=== PATIENT | female | born 1945 | race Hispanic/Latino ===

== ENCOUNTER 2017-09-19 11:04 | Inpatient (IN) | payer OTHER ==
[2017-09-19 11:41] LABS: #Basophils 0.1 thou/uL (0.0-0.2); #Eosinphils 0.1 thou/uL (0.0-0.7); #Lymphocytes 2.1 thou/uL (1.20-3.40); #Monocytes 0.3 thou/uL (0.11-0.59); %Basophils 1.8 % (0.0-1.0); %Eosinophils 2.6 % (0.0-10.0); %Lymphocytes 44.9 % (21.0-51.0); %Monocytes 6.7 % (0.0-10.0); %Neutrophils 44.1 % (42.0-75.0); Hemoglobin 14.5 g/dL (12.0-16.0); Mean Corpuscular HGB CONC 33.2 g/dL (32.0-36.0); Mean Corpuscular Hemoglobin 31.2 pg (27.0-31.0); Mean Corpuscular Volume 93.8 fl (81.0-99.0); Mean Platelet Volume 7.3 fL (7.4-10.4); Platelet Count 305 thou/uL (130-400); RBC Distribution Width 12.7 % (11.5-14.5); Red Blood Cell (RBC) Count 4.64 mill/uL (4.20-5.40); White Blood Cell (WBC) Count 4.6 thou/uL (4.8-10.8)
[2017-09-19 12:07] LABS: CKMB 0.6 ng/mL (0-6.6)
[2017-09-19 13:09] LABS: Albumin 4.2 g/dL (3.4-4.8)
[2017-09-19 13:10] LABS: Chloride 106 mmol/L (98-107); Potassium 3.8 mmol/L (3.5-5.1); Sodium 139 mmol/L (136-145)
[2017-09-19 13:11] LABS: Calcium 10.2 mg/dL (7.8-10.44); Glucose 88 mg/dL (83-110)
[2017-09-19 13:12] LABS: Globulin 3.2 g/dL (2.4-3.5); Protein, Total 7.4 g/dL (6.0-8.3)
[2017-09-19 13:13] LABS: Anion Gap 12 mmol/L (10-20); Carbon Dioxide 25 mmol/L (23-31)
[2017-09-19 13:14] LABS: Alkaline Phosphatase 103 U/L (40-150)
[2017-09-19 13:15] LABS: Calc. Creatinine Clearance 0 mL/min (70-130); Estimated GFR-MDRD 65
[2017-09-19 13:16] LABS: AST (SGOT) 16 U/L (5-34); BUN (Urea Nitrogen) 21 mg/dL (9.8-20.1)
[2017-09-19 13:17] LABS: ALT (SGPT) 10 U/L (8-55); CK (CPK) 51 U/L (29-168)
[2017-09-19 13:21] LABS: Bilirubin Negative (Negative); Blood, Urine Negative (Negative); Clarity CLEAR (Clear); Glucose, Urine (Dipstick) Negative (Negative); Leukocyte Negative (Negative); Nitrite Negative (Negative); Protein, Urine (Dipstick) Negative (Neg-Trace); Specific Gravity, Urine 1.013 (1.002-1.036)
--- NOTE | 2017-09-19 14:18 | RAD ---
PORTABLE CHEST ONE VIEW: 09/19/2017 12:58 p.m. HISTORY: Weakness. Dizziness. FINDINGS: The heart size is normal. The aorta is tortuous. The lungs are well expanded without focal areas of consolidation, pneumothorax, or pleural effusions. IMPRESSION: No radiographic evidence of acute cardiopulmonary process. POS: [facility]
[2017-09-19 15:09] LABS: CKMB 0.6 ng/mL (0-6.6); Troponin I 0.039 ng/mL (< 0.028)
[2017-09-19] MEDS ORDERED: hydrALAZINE 20 MG/ML VIAL ONE (16:13)
[2017-09-19 18:11] LABS: Troponin I 0.038 ng/mL (< 0.028)
[2017-09-19] MEDS ORDERED: hydrALAZINE 20 MG/ML VIAL SLOW IVP PRN (18:18)
[2017-09-19] MEDS ORDERED: Mag-Al 1200 mg/1200 mg/30 ML UDCUP PO PRN (18:18)
[2017-09-19] MEDS ORDERED: Ondansetron ODT 4 MG TAB PO PRN (18:18)
[2017-09-19] MEDS ORDERED: Milk Of Magnesia 30 ML UDCUP PO PRN (18:18)
[2017-09-19] MEDS ORDERED: Ondansetron HCl/PF 4 MG/2 ML Vial IVP PRN (18:18)
[2017-09-19 18:23] VITALS: BMI 22.7
--- NOTE | 2017-09-19 19:06 | HP ---
PRIMARY CARE PHYSICIAN: Currently does not have a primary care physician. CHIEF COMPLAINT: Feeling dizzy and weak. HISTORY OF PRESENT ILLNESS: Ms. Fallon is a pleasant 71-year-old female. [facility]. She says that she began feeling bad about 2-3 days ago. She says that she noticed some burning with urination and increased urination. She had gone to the [facility] on and was given Bactrim DS then on the next day; Sunday, she went to class and she says she was w alking through the unit and began feeling weak and dizzy. She says she went to eat lunch and then fe lt shaky and was shaking a lot and the nurse gave her meclizine. She says she went to bed and then t his morning she was still feeling very weak and says that her left side felt a little bit numb. She also had some nausea, but no vomiting. She thought that the nausea might be related to a new medicat ion. She was prescribed for psoriasis. She says that she had been recently placed on Otezla and was having some difficulty with balance. The patient also says that she has been having some difficulty with swallowing. She says the food feels like it gets stuck in her throat. She said this happen to her before about 2 years ago and at that time she had what sounds like an esophageal dilatation and she says the symptoms started to return this past November and has gotten progressively worse. She was s een in the ER and her initial evaluation is essentially negative with the exception of a slightly wes vated troponin and also she had an EKG in which her heart rate was in the 40s. She has been on ateno lol, but she says that she did not take the atenolol today and she has been on the medication for the past 5 months. She took this to replace lisinopril, which caused a cough. REVIEW OF SYSTEMS: Constitutional: There have been no fevers, chills, no night sweats, no weight lo ss. HEENT: She denies any headache, no dizziness, no visual changes, no sore throat, no rhinorrhea, neck pain, no adenopathy. Pulmonary: No hemoptysis, no cough, no wheezing. Cardiovascular: She d enies any chest pain, no shortness of breath, no PND, no orthopnea. Gastrointestinal: As the histor y of present illness. She has been having some dysphagia to solids with food getting stuck in her th roat. She also admits to having some rectal bleeding about a month ago and some rectal pain. She ad mits to some hemorrhoids and says she was given Preparation H and it helped and she also had some sto ol for occult blood done, which she says reportedly was negative. Genitourinary: She has had recent dysuria in which she had been treated with Bactrim. Musculoskeletal: No muscle pains, weakness or joint pains. Neurologic: No focal weakness, numbness, no seizures. Psychiatric: No symptoms of an xiety or depression. Skin and Integument: No skin changes. No rash. PAST MEDICAL HISTORY: Significant for psoriasis, esophageal stricture and fibromyalgia. PAST SURGICAL HISTORY: She has had a hysterectomy and tonsillectomy. ALLERGIES: No known drug allergies, but LISINOPRIL causes a cough. SOCIAL HISTORY: She is , has 4 children, seven grandchildren. She is a nonsmoker, nondrinker . She wishes to be DNR. FAMILY HISTORY: Negative. CURRENT MEDICATIONS: Include Cymbalta, Lyrica, amlodipine and atenolol. PHYSICAL EXAMINATION: GENERAL: She is alert and oriented. She appears to be in no acute distress. VITAL SIGNS: The blood pressure was 179/76, heart rate 53, respiratory rate of 16, and she is afebri le. HEENT: Pupils are equal, round, and reactive. Extraocular muscles are intact. Her sclerae are anic teric. Throat, no erythema, no exudates. NECK: No adenopathy, no bruits. LUNGS: Clear to auscultation. There is no wheezing, no rales. CARDIOVASCULAR: She has a normal S1, S2. There was no S3 or S4. No murmurs, clicks or rubs. ABDOMEN: Soft, it is nontender, nondistended. Positive for bowel sounds. No rebound or guarding. EXTREMITIES: There is no edema. NEUROLOGIC: Neurologically, the exam is grossly nonfocal. SIGNIFICANT LABORATORY DATA: White blood cell count is 4.6, hemoglobin 14.5, hematocrit is 43.5, alek telet count is 305. Sodium 139, potassium 3.8, chloride is 106, CO2 is 25, BUN of 21, creatinine 0.8 6, glucose is 88. Urinalysis was essentially negative. ASSESSMENT AND PLAN: 1. This is a pleasant 71-year-old female that presents with some vague symptoms including some dysph agia as well as feeling weak and dizzy and mild nausea. She had an EKG that showed some bradycardia. It is unclear if her heart rate is causing her symptoms such as the weakness and dizziness. For th is reason, we will place her in observation, monitor her on telemetry, get an echocardiogram and cons ult Cardiology for possible symptomatic bradycardia. We will also hold atenolol and see if the trend continues off of beta blockers. 2. Dysphasia. We will consult the coating operator police surgeon and see if she is a candidate for esop hageal dilatation. 3. She appears to be volume depleted. She has a high BUN to creatinine ratio. This could be contri buting to her symptoms as well. Therefore, she will be placed on IV fluids and we can see if this he lps the following day with regards to her symptoms, i.e., after she has been hydrated and we will als o check some general labs such as thyroid functions and a sed rate.
[2017-09-19] MEDS: Sodium Chloride 0.9% 1,000 ML IV SCH (20:59)
[2017-09-19 21:08] LABS: Troponin I 0.035 ng/mL (< 0.028)
[2017-09-20 05:01] LABS: #Basophils 0.1 thou/uL (0.0-0.2); #Eosinphils 0.2 thou/uL (0.0-0.7); #Lymphocytes 2.3 thou/uL (1.20-3.40); #Monocytes 0.5 thou/uL (0.11-0.59); #Neutrophils 2.4 thou/uL (1.40-6.50); %Basophils 1.8 % (0.0-1.0); %Eosinophils 3.6 % (0.0-10.0); %Lymphocytes 42.1 % (21.0-51.0); %Monocytes 8.3 % (0.0-10.0); %Neutrophils 44.1 % (42.0-75.0); Hemoglobin 13.2 g/dL (12.0-16.0); Mean Corpuscular HGB CONC 32.6 g/dL (32.0-36.0); Mean Corpuscular Hemoglobin 30.8 pg (27.0-31.0); Mean Corpuscular Volume 94.3 fl (81.0-99.0); Mean Platelet Volume 6.6 fL (7.4-10.4); Platelet Count 298 thou/uL (130-400); RBC Distribution Width 12.4 % (11.5-14.5); Red Blood Cell (RBC) Count 4.29 mill/uL (4.20-5.40); White Blood Cell (WBC) Count 5.5 thou/uL (4.8-10.8)
[2017-09-20 05:12] LABS: Anion Gap 10 mmol/L (10-20); BUN (Urea Nitrogen) 17 mg/dL (9.8-20.1); Calc. Creatinine Clearance 52 mL/min (70-130); Carbon Dioxide 27 mmol/L (23-31); Cardiac Risk 4.5 (Less than 4.5); Chloride 108 mmol/L (98-107); Cholesterol 285 mg/dl (< 200 Desired); Estimated GFR-MDRD 69; Glucose 94 mg/dL (83-110); HDL Cholesterol 64 mg/dL (>60 Neg Risk); LDL Cholesterol, Calculated 191 mg/dL; Potassium 3.6 mmol/L (3.5-5.1); Sodium 141 mmol/L (136-145); Triglycerides 151 mg/dL (Less than 150)
[2017-09-20] MEDS: Enoxaparin Sodium 30 MG/0.3 ML SYRINGE SC SCH (08:55)
[2017-09-20] MEDS: Aspirin 325 MG TAB PO SCH (08:55)
[2017-09-20] MEDS: Sodium Chloride 0.9% 1,000 ML IV SCH (08:56)
[2017-09-20] MEDS ORDERED: Regadenoson 0.4 MG/5 ML SYRINGE ONE (09:56)
[2017-09-20] MEDS: Acetaminophen 325 MG TAB PO PRN ×2 (16:05→22:41)
--- NOTE | 2017-09-20 16:23 | NM ---
NUCLEAR MEDICINE CARDIAC MYOCARDIAL PERFUSION SPECT EJECTION FRACTION STUDY WALL MOTION CINE: Date: 09/20/17 HISTORY: 71-year-old female with elevated troponin, and history of hypertension and hypercholesterolemia. TECHNIQUE: Number of days: 1 Rest study: Tc99m sestamibi (Cardiolite) dose: 9.5 mCi Pharmacologic stress: Lexiscan dose: 0.4 mg Stress study: Tc99m sestamibi (Cardiolite) dose: 30.8 mCi FINDINGS: CARDIAC (MYOCARDIAL PERFUSION) SPECT Distribution of sestamibi is homogeneous throughout the left ventricle, with no fixed or reversible m yocardial perfusion defects. EJECTION FRACTION STUDY EF = 83% WALL MOTION CINE The left ventricular wall motion is normal. There is normal systolic wall thickening. IMPRESSION: Normal. jn[] POS: [facility]
--- NOTE | 2017-09-20 16:55 | PDOC.PN ---
- Subjective Encounter Start Date: 09/20/17 Encounter Start Time: 16:54 Ms. Fallon was seen today in follow-up. She says she is feeling better. She denies having any new complaints. - Objective Resuscitation Status: Resuscitation Status DNR:Do Not Resuscitate MAR Reviewed: Yes Vital Signs & Weight: Vital Signs (12 hours) Temp Pulse Pulse Resp BP BP BP 09/20/17 15:58 98.1 F 90 15 168/80 H 09/20/17 11:44 98.3 F 86 16 09/20/17 10:00 87 185/84 H 09/20/17 09:56 09/20/17 09:05 189/88 H 09/20/17 09:00 189/88 H 09/20/17 08:00 97.9 F 61 16 BP Pulse Ox 09/20/17 15:58 95 09/20/17 11:44 154/82 H 96 09/20/17 10:00 09/20/17 09:56 173/74 H 09/20/17 09:05 09/20/17 09:00 09/20/17 08:00 186/81 H 93 L Weight Weight 116 lb 4.8 oz I&O: 09/19/17 09/20/17 09/21/17 06:59 06:59 06:59 Intake Total 830 Output Total 1000 1400 Balance -170 -1400 Result Diagrams: 09/20/17 04:53 09/20/17 04:53 Phys Exam - Physical Examination HEENT: PERRLA Respiratory: no wheezing, no rales, no rhonchi, clear to auscultation bilateral Cardiovascular: RRR, no significant murmur, no rub Gastrointestinal: soft, non-tender, positive bowel sounds Musculoskeletal: no edema Dx/Plan (1) Bradycardia Code(s): R00.1 - BRADYCARDIA, UNSPECIFIED Status: Acute (2) Generalized weakness Code(s): R53.1 - WEAKNESS Status: Acute (3) Hypertension Code(s): I10 - ESSENTIAL (PRIMARY) HYPERTENSION Status: Acute (4) Psoriasis Code(s): L40.9 - PSORIASIS, UNSPECIFIED Status: Acute - Plan * Bradycardia- her heart rate has been normal after withdrawing Atenolol * Stress test and Echo were normal * Await further recommendations from Cardiology * Dysphagia- Plan for GI evaluation * HTN- will re-start Amlodipine * Generalized weakness- possibly due to volume depletion, as she is improved after IV fluids, and her BUN to creatinine ratio was elevated yesterday.
--- NOTE | 2017-09-20 17:53 | CON ---
DATE OF CONSULTATION: 09/20/2017 INDICATION FOR CONSULTATION: A 71-year-old female with slight elevation in the cardiac enzymes, whic h are still obviously indeterminate. HISTORY OF PRESENT ILLNESS: This is a 71-year-old female, who is incarcerated and has not been feeli ng well for the last couple days, complaining of dizziness, and weakness. She had had history of hyp ertension in the past and some occasional chest discomfort. She has been in the past using nitroglyc tsering patches obviously, but has none there for quite some time, but she has been treated with atenolo l. She presented to the emergency room yesterday and was noted to have a heart rate in the 40s, whic h is sinus bradycardia. She was not significantly symptomatic with this and since being in the [facility], she has not been on the atenolol and the heart rate has increased and actually on occasion has b een up to almost 130 when she gets up and goes to the bathroom. She denies any chest pain at this ti me. She has also been complaining of some dysphagia and has a history of a previous esophageal stric ture in the past and underwent dilatation. She had no other significant complaints. She had no lowe r extremity edema and shortness of breath. She give some history of a murmur in the past. She had a n echocardiogram performed earlier today, which shows a normal ejection fraction with mild mitral and tricuspid and pulmonary valve regurgitation. PAST MEDICAL HISTORY: Significant for esophageal stricture. She has history of psoriasis, fibromyal roscoe, hypertension, hypercholesterolemia. She had a hysterectomy, tonsillectomy. SOCIAL HISTORY: She is a . She has no history of alcohol or tobacco abuse. FAMILY HISTORY: Noncontributory. ALLERGIES: She has intolerance to BALAJI inhibitors. Otherwise, no significant medical allergies, we a campuzano of. REVIEW OF SYSTEMS: Twelve-point review of systems unremarkable except what was noted the history of present illness except for some occasional dysuria, but she had urinalysis, which was unremarkable. PHYSICAL EXAMINATION: GENERAL: Reveals a short statured female. VITAL SIGNS: Blood pressure is 173/74. She is afebrile. Heart rate initially was 60 to 70s, at thi s time shows a sinus rhythm, respiratory rate 16, and O2 saturations are 93%. HEENT: Shows the head to be normocephalic and atraumatic. Carotid pulses are present. There were n o bruits. There is no JVD. The thyroid is not enlarged. Oral mucosa was pink and moist. CHEST: Clear to auscultation without rales, rhonchi, or wheezing. CARDIOVASCULAR: Exam reveals a regular rate and rhythm with normal S1 and S2. There are no signific ant murmurs, heaves, thrills, bruits, or rubs. ABDOMEN: Soft and nontender with positive bowel sounds. No organomegaly or masses are noted. Femor al pulses are present. EXTREMITIES: Showed no clubbing, cyanosis, or edema. Pedal pulses are present. NEUROLOGIC: She appears to be fully intact. She has normal strength and tone. SKIN: Warm and dry. LABORATORY DATA: Shows a troponin I of 0.03, which has remained at 0.030 up to 0.039 and down to 0.0 35, all of which have been indeterminate. Her CPK-MB is unremarkable. Her LDL level was 191. Trigl yceride level was 151. There is no evidence of anemia. Renal function is normal with a creatinine o f 0.82, potassium is borderline at 3.6. At this time, her EKG did not show any ischemia. It could b e that decrease in the heart rate was either vasovagal episode or either due to possibly being on the beta blockers. We will continue to follow this, at this time her heart rate is stable. If she has tachycardia, we may resume a small dose of beta blockers, which she said previously she had been what she thought was on 25 mg of the beta fredi and according to the records, this is what was indicate d. She is also taking Otezla as well as Norvasc 10 mg a day. Other medicines have included Cymbalta and Lyrica. She has also been given p.r.n., meclizine. She had been given some antibiotics, for wh ich it was thought to be possible urinary tract infection. She was given sulfa drugs in the form of Septra and this actually may have been the etiology of her dizziness, weakness, and nausea due to the antibiotics. She was treated with Bactrim. IMPRESSION: 1. A middle-aged female with risk factors of coronary artery disease, which include hypertension, hy percholesterolemia, some history of chest pain in the past. No history of tobacco abuse, some remote history also of chest pain and nitroglycerin use. At this time, I would suggest that since her echo was unremarkable and EKGs also show no evidence of ischemia. She undergo some type of stress test t o rule out evidence for underlying ischemia. 2. Esophageal dysphagia, which may be associated with esophageal dilatation. She will be seen by [facility] supervisor [employer]. She may need to undergo again esophageal dilatation. 3. Hypertension. We will need to readjust her medications in order to maintain the blood pressure. 4. Hypercholesterolemia. I would suggest she start on some type of statin medications. 5. History of dizziness. Again, this may have been due to the bradycardia or may be due to the medi cation that she was given for the possible urinary tract infection in the form of Bactrim. 6. Abnormal cardiac enzymes. She is obviously indeterminate and may be just due to the hypertension that she has developed since being admitted. Further recommendations will depend on the results of the stress test. If this is unremarkable, then no further cardiac workup would be indicated at this time. If the stress test shows significant abnormalities then I would suggest she undergo possible c ardiac catheterization.
[2017-09-20] MEDS ORDERED: Apremilast [Otezla] 30 MG PO SCH (21:00)
--- NOTE | 2017-09-20 21:59 | CON ---
DATE OF CONSULTATION: 09/20/2017 REASON FOR CONSULTATION: Dysphagia. HISTORY OF PRESENT ILLNESS: Ms. Reagan is a 71-year-old who came to emergency room for dizziness an d weakness. She was found to have her pulses in the 60s. Her examination was benign. She ruled out for VA. She was placed in observation status as in the side, she was noted to have a history of dys phagia which has been worsening over the past several months. This is mainly for solid foods. She h as had no bolus obstruction. She has had no weight loss or vomiting. She reports she has had an EGD several years ago at an outside facility at [place], [place], for the same and had reflux. I am asked t o see her in regards to this. PAST MEDICAL HISTORY: Psoriasis. The patient notes she had depression when she was placed in an inc arceration because of something her friend had done and with that developed significant fibromyalgia, but she is getting over both of those. Prior history of gastroesophageal reflux disease. PAST SURGICAL HISTORY: Hysterectomy, tonsillectomy, and previous esophageal dilatation. MEDICATIONS: Cymbalta, Lyrica, amlodipine, atenolol. She states she takes omeprazole daily. ALLERGIES: LISINOPRIL causes a cough. SOCIAL HISTORY: Nonsmoker, nondrinker. She is incarcerated. PRESENT MEDICATIONS: Here, Tylenol, Maalox, Lovenox, Apresoline, Milk of Magnesia, Zofran, Protonix, normal saline 75. PHYSICAL EXAMINATION: GENERAL: She is resting comfortably in bed. VITAL SIGNS: Temperature is 98, pulse 86, blood pressure 185/84. GENERAL: She is a well-nourished, well-developed. NECK: Supple without adenopathy. HEENT: Oropharynx without lesions. LUNGS: Clear. HEART: Regular rate and rhythm without clicks or murmurs. EXTREMITIES: No clubbing, cyanosis or edema. LABORATORY STUDIES: CBC is normal. Comprehensive metabolic profile normal. Troponins 0.03-0.0389. Chest x-ray negative. ASSESSMENT: 1. Patient is admitted for weakness and bradycardia and she is going for a cardiac stress test which will be 2 days apparently. 2. Dysphagia, longstanding, worsening recently. RECOMMENDATIONS: Elective EGD once patient has been cleared from a cardiac standpoint. This could b e as an in or outpatient. I will be more happy to reevaluate the patient once cardiac evaluation is complete.
[2017-09-21] MEDS: Sodium Chloride 0.9% 1,000 ML IV SCH ×3 (03:19→19:45)
[2017-09-21] MEDS ORDERED: hydrALAZINE 20 MG/ML VIAL SLOW IVP PRN (04:25)
[2017-09-21] MEDS: Enoxaparin Sodium 30 MG/0.3 ML SYRINGE SC SCH (08:04)
--- NOTE | 2017-09-21 08:10 | PDOC.CTH ---
<Luciana Roberts - Last Filed: 09/21/17 08:11> Cardiology Progress Note - Subjective The pt seen and examined. No overnight events. No cardiac complaints. She still complains of discomfort in upper ABD, but denied any CP or discomfort in her chest, dizziness, SOB or other cardiac complaints at this moment. - Objective Vital Signs Temp Pulse Resp BP BP Pulse Ox 09/21/17 07:23 97.8 F 63 16 09/21/17 07:16 98.0 F 65 16 174/79 H 96 09/21/17 03:20 97.8 F 63 16 171/72 H 94 L Weight 116 lb 4.8 oz 09/20/17 09/21/17 09/22/17 06:59 06:59 06:59 Intake Total 830 1496 Output Total 1000 1950 Balance -170 -454 - Physical Examination General/Neuro: alert & oriented x3 Neck: no JVD present Lungs: CTA Heart: RRR Abdomen: soft Extremities: other: (No edema) - Telemetry Telemetry Rhythm: SR 60s - Labs Result Diagrams: 09/20/17 04:53 09/20/17 04:53 Troponin/CKMB CK-MB (CK-2) 0.6 ng/mL (0-6.6) 09/19/17 14:35 Troponin I 0.035 ng/mL (< 0.028) H 09/19/17 20:29 - Assessment/Plan 1. Dizzness and weakness possible due to Bradycardia - stable after withdrawing Atenolol. Cont. to monitor on tele 2. Indeterminate trop - Stress test on 09/20/17 showed normal; on ASA and Lovenox; not on Bblocker due to bradycardia; Clear for EGD 3. HTN - Norvasc 10mg qd will be resumed from this AM. Possible BALAJI/ARE if her BP continues to be hypertensive. 4. GERD - Stress test on 09/20/17 showed normal; Clear for EGD; She is NPO at this moment; Managed by GI 5. Psoriasis - managed by PCP. CYNDIE reviewed * Stress test on 09/20/17 showed normal; Clear for EGD Review of Systems - Review of Systems Constitutional: reports: no symptoms reported EENTM: reports: no symptoms reported Respiratory: reports: no symptoms reported Cardiac (ROS): reports: no symptoms reported ABD/GI: reports: see HPI : reports: no symptoms reported Musculoskeletal: reports: no symptoms reported <Chen Zarate - Last Filed: 09/21/17 17:23> Cardiology Progress Note - Objective Vital Signs Temp Pulse Resp BP BP BP Pulse Ox 09/21/17 15:22 98.2 F 77 16 165/76 H 97 09/21/17 12:30 84 14 164/75 H 95 09/21/17 11:55 98.2 F 83 18 184/80 H 94 L 09/21/17 08:46 63 09/21/17 07:23 97.8 F 63 16 09/21/17 07:16 98.0 F 65 16 174/79 H 96 Weight 116 lb 4.8 oz 09/20/17 09/21/17 09/22/17 06:59 06:59 06:59 Intake Total 830 1496 Output Total 1000 1950 1350 Balance -277 -538 -7155 - Labs Result Diagrams: 09/20/17 04:53 09/20/17 04:53 Troponin/CKMB CK-MB (CK-2) 0.6 ng/mL (0-6.6) 09/19/17 14:35 Troponin I 0.035 ng/mL (< 0.028) H 09/19/17 20:29 - Assessment/Plan pt. seen and eval. by me. I agree with the A/P by the [employer] COMMISSIONER. Stress test is nl. Cardiac status is stable. I will sign off.thank you for the consult.
[2017-09-21] MEDS: Amlodipine 10 MG TAB PO SCH (08:46)
[2017-09-21] MEDS: Aspirin 325 MG TAB PO SCH (08:46)
[2017-09-21] MEDS ORDERED: Promethazine HCl 25 MG/ML VIAL IM PRN (11:24)
[2017-09-21] MEDS ORDERED: Ondansetron HCl/PF 4 MG/2 ML Vial IVP PRN (11:24)
[2017-09-21] MEDS ORDERED: Promethazine HCl 25 MG/ML VIAL SLOW IVP PRN (11:24)
[2017-09-21] MEDS ORDERED: Meperidine HCl/PF 25 MG/ML VIAL SLOW IVP PRN (11:24)
--- NOTE | 2017-09-21 18:26 | PDOC.PN ---
- Subjective Encounter Start Date: 09/21/17 Encounter Start Time: 18:22 Ms. Fallon was seen in follow-up of dysphagia, and bradycardia. She notes that after the EGD and dilation she is having difficulty swallowing. - Objective Resuscitation Status: Resuscitation Status DNR:Do Not Resuscitate MAR Reviewed: Yes Vital Signs & Weight: Vital Signs (12 hours) Temp Pulse Resp BP BP BP Pulse Ox 09/21/17 15:22 98.2 F 77 16 165/76 H 97 09/21/17 12:30 84 14 164/75 H 95 09/21/17 11:55 98.2 F 83 18 184/80 H 94 L 09/21/17 08:46 63 09/21/17 07:23 97.8 F 63 16 09/21/17 07:16 98.0 F 65 16 174/79 H 96 Weight Weight 116 lb 4.8 oz I&O: 09/20/17 09/21/17 09/22/17 06:59 06:59 06:59 Intake Total 830 1496 Output Total 1000 1950 1350 Balance -031 -068 -0673 Result Diagrams: 09/20/17 04:53 09/20/17 04:53 Phys Exam - Physical Examination HEENT: PERRLA Respiratory: no wheezing, no rales, no rhonchi, clear to auscultation bilateral Cardiovascular: RRR, no significant murmur, no rub Gastrointestinal: soft, non-tender, no distention, positive bowel sounds Musculoskeletal: no edema Dx/Plan (1) Bradycardia Code(s): R00.1 - BRADYCARDIA, UNSPECIFIED Status: Acute (2) Generalized weakness Code(s): R53.1 - WEAKNESS Status: Acute (3) Hypertension Code(s): I10 - ESSENTIAL (PRIMARY) HYPERTENSION Status: Acute (4) Psoriasis Code(s): L40.9 - PSORIASIS, UNSPECIFIED Status: Acute - Plan * Dysphagia- discussed with Dr. Boss, she may have some time of esophageal dysmotility problem as a cause of this dysphagia- will monitor her overnight , clear liquids only, and Protonix IV * Will re-assess in the AM * Bradycardia- has improved after withdrawing Atenolol * HTN- will add Hydralazine in it's place.
--- NOTE | 2017-09-21 18:31 | RAD ---
GASTROGRAFIN ESOPHAGRAM 09/21/17 INDICATIONS: EGD earlier today. Pain with vomiting. Esophagus appears unremarkable. There is luminal narrowing at the EG junction. Contrast backed up in the esophagus and there was slow passage through this luminal narrowing. The stomach did opacify and appears unremarkable. There is no extravasation. IMPRESSION: Significant luminal narrowing at the EG junction. No evidence of extravasation or esophageal tear rachelle ntified. POS: [facility]
--- NOTE | 2017-09-21 18:56 | OP ---
PREPROCEDURE DIAGNOSES: Dysphagia and history of stricture in the past. POSTOPERATIVE DIAGNOSES: 1. Stasis changes in lower esophagus consistent with dysphagia issues. 2. Slightly ringed esophagus distally. 3. Slight narrowing of inflammation GE junction dilated 18 mm with good effect. 4. Hiatal hernia. 5. Mild antral gastritis. 6. Normal duodenum. RECOMMENDATIONS: 1. PPI daily. 2. Follow up in my office in 2-3 weeks. If symptoms persist, would consider manometry to rule out a chalasia. ANESTHESIA: TIVA. PROCEDURE IN DETAIL: After the patient was informed of the risks, benefits, possible complications o f endoscopy including perforation, bleeding, reactions to medication and aspiration, informed consent was obtained. The patient was brought to endoscopy suite where she was prepped and draped in standa rd fashion. Once she was comfortable, a bite block was placed in incisural orifice. The endoscope w as advanced through the esophagus, stomach and second and third portion of duodenum and slowly remove d. There was good visualization of mucosa. In the distal esophagus, there was some ringed appearanc e consistent with possible mild eosinophilic esophagitis, but more so there were stasis changes in lo wer esophagus and some slight narrowing at the GE junction. There was relaxation, but not complete r elaxation. There did appear to be a slight stricture, this was dilated with an 18 mm balloon. Secon d look confirmed good effect. The stomach was notable for a 5 cm hiatal hernia. There is mild eryth amanda in the antrum of the stomach. The duodenum was normal to the third portion. Retroflexed views i n the stomach were normal. The scope was removed. The patient tolerated the procedure well and no c omplications.
[2017-09-21] MEDS ORDERED: Lidocaine 1% PF 5 ML VIAL ONE (19:42)
[2017-09-21] MEDS ORDERED: PROPOFOL 200 MG/20 ML VIAL ONE (19:42)
[2017-09-21] MEDS: hydrALAZINE 25 MG TAB PO SCH (19:46)
[2017-09-21] MEDS: Pantoprazole 40 MG VIAL IVP SCH (19:47)
[2017-09-21] MEDS ORDERED: MD-Gastroview 120 ML BOT ONE (20:24)
[2017-09-22] MEDS: Pantoprazole 40 MG VIAL IVP SCH ×2 (08:50→20:59)
[2017-09-22] MEDS: hydrALAZINE 25 MG TAB PO SCH ×3 (08:52→20:59)
[2017-09-22] MEDS: Amlodipine 10 MG TAB PO SCH (08:52)
[2017-09-22] MEDS: Aspirin 325 MG TAB PO SCH (08:52)
[2017-09-22] MEDS ORDERED: Atenolol 25 MG TAB PO SCH (10:45)
[2017-09-22] MEDS: Enoxaparin Sodium 30 MG/0.3 ML SYRINGE SC SCH (10:56)
--- NOTE | 2017-09-22 13:56 | PRG ---
DATE OF SERVICE: 09/22/2017 SUBJECTIVE: This is a 71-year-old -[place] female with dysphagia. The patient underwent EGD w ith dilation by Dr. Peraza and post procedure, she developed some nausea, vomiting, some discomfort. She underwent a barium swallow subsequently. The barium swallow showed no extravasation of contrast , but did show a luminal narrowing at the GE junction. The patient is on a clear liquid diet. Yeste rday, she was not able to swallow, but today she is keeping the clear liquids down. She has no chest pain. No abdominal pain. PHYSICAL EXAMINATION: VITAL SIGNS: Afebrile, pulse 68, blood pressure 129/62. NECK: Supple. CARDIOVASCULAR: First and second heart sounds normal. LUNGS: Clear to auscultation. ABDOMEN: Soft. No organomegaly. No tenderness. No masses. CLINICAL IMPRESSION: Esophageal stricture, status post dilation. Obviously, the patient has dysphag ia. As per Dr. Peraza, there is a possibility that the patient could have achalasia. PLAN: Advance diet to full liquid diet. She is tolerating a full liquid diet. She can be discharge d back to culture from tomorrow. The patient was brought back by Dr. Peraza for esophageal manometry and further workup as an outpatient.
[2017-09-22] MEDS: Sodium Chloride 0.9% 1,000 ML IV SCH (14:46)
--- NOTE | 2017-09-22 15:13 | PDOC.PN ---
- Subjective Encounter Start Date: 09/22/17 Encounter Start Time: 15:11 Ms. Fallon was seen in follow-up of Dysphagia and bradycardia. She is able to tolerate the clear liquids. She believes her heart rate was elevated earlier because she was praying with her daughter and " got worked up". - Objective Resuscitation Status: Resuscitation Status DNR:Do Not Resuscitate MAR Reviewed: Yes Vital Signs & Weight: Vital Signs (12 hours) Temp Pulse Resp BP Pulse Ox 09/22/17 14:15 55 L 09/22/17 13:00 67 09/22/17 11:52 98.1 F 68 16 129/62 97 09/22/17 11:48 72 09/22/17 10:54 121 H 09/22/17 08:52 92 09/22/17 08:00 98.4 F 92 16 09/22/17 07:34 98.4 F 92 16 164/76 H 95 Weight Weight 116 lb 4.8 oz I&O: 09/21/17 09/22/17 09/23/17 06:59 06:59 06:59 Intake Total 1496 670 250 Output Total 1950 2049 Balance -454 -1380 250 Result Diagrams: 09/20/17 04:53 09/20/17 04:53 Phys Exam - Physical Examination HEENT: PERRLA Respiratory: no wheezing, no rales, no rhonchi, clear to auscultation bilateral Cardiovascular: RRR, no significant murmur, no rub Gastrointestinal: soft, non-tender, no distention, positive bowel sounds Musculoskeletal: no edema Dx/Plan (1) Bradycardia Code(s): R00.1 - BRADYCARDIA, UNSPECIFIED Status: Acute (2) Generalized weakness Code(s): R53.1 - WEAKNESS Status: Acute (3) Hypertension Code(s): I10 - ESSENTIAL (PRIMARY) HYPERTENSION Status: Acute (4) Psoriasis Code(s): L40.9 - PSORIASIS, UNSPECIFIED Status: Acute - Plan * Dysphagia- Discussed with Dr. Singh, will advance her diet to full liquids. * She is need outpatient esophageal manometry * Bradycardia- the patient heart rate went up to 140 after she got up to walk. She was given a dose of Atenolol and it is now around 50. It it fluctuating widely. She may need another Beta-fredi such as coreg, or rate controlling Calcium channel fredi- will defer to Cardiology
[2017-09-23] MEDS: hydrALAZINE 25 MG TAB PO SCH ×3 (08:48→20:17)
[2017-09-23] MEDS: Pantoprazole 40 MG VIAL IVP SCH (08:48)
[2017-09-23] MEDS: Enoxaparin Sodium 30 MG/0.3 ML SYRINGE SC SCH (08:48)
[2017-09-23] MEDS: Aspirin 325 MG TAB PO SCH (08:48)
[2017-09-23] MEDS: Amlodipine 10 MG TAB PO SCH (08:49)
--- NOTE | 2017-09-23 12:37 | PDOC.PN ---
- Subjective Encounter Start Date: 09/23/17 Encounter Start Time: 12:35 Ms. Fallon was seen today in follow-up. She does not have any complaints. She was able to tolerate a full liquid diet. - Objective Resuscitation Status: Resuscitation Status DNR:Do Not Resuscitate MAR Reviewed: Yes Vital Signs & Weight: Vital Signs (12 hours) Temp Pulse Resp BP BP BP Pulse Ox 09/23/17 08:49 58 L 141/67 H 09/23/17 08:48 58 L 141/67 H 09/23/17 08:00 98 F 58 L 18 141/67 H 96 09/23/17 07:30 98 F 58 L 18 09/23/17 03:08 98.1 F 64 14 151/67 H 96 Weight Weight 114 lb 12.8 oz I&O: 09/22/17 09/23/17 09/24/17 06:59 06:59 06:59 Intake Total 670 1020 Output Total 2050 Balance -1380 1020 Result Diagrams: 09/20/17 04:53 09/20/17 04:53 Phys Exam - Physical Examination HEENT: PERRLA Respiratory: no wheezing, no rales, no rhonchi, clear to auscultation bilateral Cardiovascular: RRR, no significant murmur, no rub Gastrointestinal: soft, non-tender, no distention, positive bowel sounds Musculoskeletal: no edema Dx/Plan (1) Bradycardia Code(s): R00.1 - BRADYCARDIA, UNSPECIFIED Status: Acute (2) Generalized weakness Code(s): R53.1 - WEAKNESS Status: Acute (3) Hypertension Code(s): I10 - ESSENTIAL (PRIMARY) HYPERTENSION Status: Acute (4) Psoriasis Code(s): L40.9 - PSORIASIS, UNSPECIFIED Status: Acute - Plan * Bradycardia- her heart rate is still on the lower side, after Atenolol given yesterday- discussed with Dr. Cardona- Not sure which antihypertensive with which to discharge her * HTN- Blood pressure is better * Dysphagia- improved after dilatation * Hopefully home sometime today.
[2017-09-23 20:16] VITALS: BP 153/81
[2017-09-23 20:25] VITALS: TEMP 97
--- NOTE | 2017-09-24 00:12 | DIS ---
DATE OF ADMISSION: 09/19/2017 DATE OF DISCHARGE: 09/23/2017 DISCHARGE DISPOSITION: Back to the [facility]. DISCHARGE DIAGNOSES: 1. Bradycardia secondary to medication. 2. Esophageal stricture. 3. History of psoriasis. 4. Fibromyalgia. DISCHARGE MEDICATIONS: Include Protonix 40 mg daily, Apresoline 25 mg t.i.d., apremilast 30 mg twice a day, amlodipine 10 mg daily. PROCEDURES DONE DURING THE ADMISSION: The patient had a nuclear stress test, which was negative for any reversible ischemia. The patient had an echocardiogram in which the ejection fraction was visual ized at 60% to 65%. The aortic valve appeared normal and no significant other valvular disease. The patient had an endoscopy with dilatation and also had a barium swallow showing significant luminal n arrowing at the EG junction. There was no evidence of extravasation or esophageal tear identified. CODE STATUS: DNR. ALLERGIES: No known drug allergies. HOSPITAL COURSE: Ms. Fallon is a pleasant 71-year-old female, who presented to the emergency room w ith complaints of feeling weak and dizzy. She was found to have significant bradycardia with heart r ates in the 40s. She was placed in observation and seen by Cardiology for this. It was felt that th is was due to the beta fredi and this was withdrawn with good results. She also had complaints of dysphagia and a feeling of food getting stuck in her throat. She has a history of esophageal strictu re in the past. She was seen by Gastroenterology and underwent a dilatation. After having the esoph ageal dilatation, she had some dysphagia to both solids and liquids and it was noted on her endoscopy that she had possibly some esophageal dysmotility or findings consistent with that. She was told th at she should have an esophageal manometry to check for this motility and this can be done as an outp atient. She was left on a clear liquid diet and IV Protonix and actually improved and was able to to lerate a full liquid diet and is being discharged back to the [facility] on 09/23/2017.
== END 2017-09-23 20:45 | DRG 310 ==
LOC: ERS 11:04 → OBSVTOIN 16:48 → 2SW 16:48 → 2NO 09-22 18:16
PROVIDERS: ADMIT Internal Medicine; ATTEND Internal Medicine
PROC: 0D748ZZ Dilation of Esophagogastric Junction, Via Natural or Artificial Opening Endoscopic (ICD-10-PCS; principal; 2017-09-21)
DX: R00.1 Bradycardia, unspecified (principal); K29.60 Other gastritis without bleeding; K44.9 Diaphragmatic hernia without obstruction or gangrene; K22.2 Esophageal obstruction; T46.1X5A Adverse effect of calcium-channel blockers, initial encounter; E78.00 Pure hypercholesterolemia, unspecified; M79.7 Fibromyalgia; L40.9 Psoriasis, unspecified; I10 Essential (primary) hypertension; K21.9 Gastro-esophageal reflux disease without esophagitis; Z90.710 Acquired absence of both cervix and uterus; Z79.899 Other long term (current) drug therapy
CPT/HCPCS: 36415; 71045; 74220; 78452; 80048; 80053; 80061; 81003; 82553; 84484; 85025; 87086; 93005; 93017; 93306; 96361; 96374; A4216; A9500; C9113; G8987-GO-CI; G8988-GO-CI; G8989-GO-CI; J0360; J1650; J2001; J2704; J2785; Q0162

== ENCOUNTER 2017-09-26 08:40 | Outpatient (CLI) | payer OTHER ==
--- NOTE | 2017-09-26 10:28 | MMO ---
BILATERAL SCREENING MAMMOGRAM: DATE: 09/26/17 HISTORY: 71-year-old female for screening mammography. COMPARISON: None available. FINDINGS: Bilateral MLO and CC views of the breasts show scattered fibroglandular breast tissue. Biopsy clip is seen in the right breast. Benign-appearing calcifications are seen in the right breast. Vascular jeff cifications are seen in the left breast. There is no evidence of suspicious mass, suspicious cluster of microcalcifications, or area of architectural distortion. Interpretation of this mammogram was performed with the assistance of computer-aided detection. IMPRESSION: BIRADS 2: Benign Finding(s) Annual screening mammography is recommended. POS: ADALBERTO
== END 2017-09-26 08:41 | disposition home or self-care (01) ==
LOC: SCSMAMMO 08:40
PROVIDERS: ATTEND Family Medicine
DX: Z12.31 Encounter for screening mammogram for malignant neoplasm of breast (principal)
CPT/HCPCS: 77067

== ENCOUNTER → 2017-12-31 | Day surgery (SDC) | payer OTHER ==
[~2017-12-31] MED LIST: Oxymetazoline HCl 0.05% ( 15 ML ) ONE
== END ==
LOC: ENDO/OP 07:21
PROVIDERS: ATTEND Internal Medicine Gastroenterology
DX: K21.9 Gastro-esophageal reflux disease without esophagitis (principal); K44.9 Diaphragmatic hernia without obstruction or gangrene; Z79.899 Other long term (current) drug therapy
CPT/HCPCS: 91010